=== PATIENT | male | born 1955 | race Caucasian/White ===

== ENCOUNTER 2016-07-29 12:58 | Emergency (ER) | payer OTHER ==
[~2016-07-29] VITALS: Ht 170.2 cm; Wt 72.6 kg
--- NOTE | 2016-07-29 16:47 | ED GENERAL ADULT ---
History of Present Illness General Chief Complaint: Lower Extremity Problems Stated Complaint: LEG PAIN, W/O BP MEDICATION X 1MO Source: patient, family, old records, mixing machine operator Exam Limitations: no limitations Vital Signs & Intake/Output Vital Signs & Intake/Output Vital Signs Date Time Temp Pulse Resp B/P B/P Pulse O2 O2 Flow FiO2 Mean Ox Delivery Rate 07/29 1719 98.2 80 17 144/80 98 Room Air Room Air 07/29 1345 98.7 73 18 148/84 99 Room Air Allergies Coded Allergies: NO KNOWN ALLERGIES (04/19/11) Reconcile Medications Gabapentin (Neurontin) 300 MG CAPSULE 1 CAP PO TID neuropathy Lisinopril 5 MG TABLET 1 TAB PO DAILY htn Triage Note: C/O BILATERAL LOWER LEG PAIN X 2 WEEKS. ALSO STATES HE RAN OUT OF BP MED (LISINOPRIL), STATES DR. CHILDRESS WILL NOT REFILL RX UNTIL HE GETS AN ECHOCARDIOGRAM. 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 Triage Nurses Notes Reviewed? yes Onset: Gradual Duration: week(s): (3), intermittent, waxing and waning Timing: recent history Injury Environment: home Severity: mild Severity Numbers: 4 No Modifying Factors: none Associated Symptoms: DENIES HPI: 61-year-old male with history of hypertension coronary artery disease presents to ER for evaluation complaining of bilateral leg pain for the past 3 weeks intermittent in nature waxing and waning worse at night described as burning. He denies any known injury trauma. No rashes to the skin no swelling to his legs no calf pain no recent travel or immobility. He denies any chest pain shortness of breath abdominal pain. He denies any other extremity injury no back pain neck pain. No recent fall or trauma. Patient is also requesting refill of his lisinopril which he ran out of earlier this month. He is pink but with all his other medications no history of diabetes. No modifying factors or associated symptoms. He denies any numbness or tingling to his leg just burning pain. He denies his burning sensation at this time. (YING GARCIA) Past History Travel History Traveled to [place] past 21 day No Medical History Any Pertinent Medical History? see below for history Cardiovascular: hypertension, CHF,CARDIAC ARREST Pneumonia Vaccine: 04/22/11 Influenza Vaccine: 04/22/11 Surgical History Surgical History: non-contributory Psychosocial History Who do you live with Son What is your primary language Turkmen Tobacco Use: Never used ETOH Use: denies use Family History Hx Contributory? No (YING GARCIA) Review of Systems Review of Systems Constitutional: Reports: see HPI. All Other Systems: Reviewed and Negative Comments Review of systems: See HPI, All other systems negative. Constitutional, no chills no fever, no malaise HEENT: No visual changes no sore throat no congestion Cardiovascular: No chest pain , no palpitation Skin: no rashes, no change in skin Respiratory: No dyspnea no cough no sputum GI: No nausea no vomiting, no diarrhea, : No dysuria Muscle skeletal: No joint pain, no joint swelling, no back pain, no neck pain, Neurologic: No numbness no headache Psych: No stress. Heme/endocrine: No bruising Immunology: No lymphadenopathy (YING GARCIA) Physical Exam Physical Exam General Appearance: well developed/nourished, no apparent distress Comments: Well-developed well-nourished person in no acute distress HEENT: Normal EENT exam; PERRL, EOMI, no nystagmus. HEAD is atraumatic. moist mucous membranes. Neck: Supple, normal range of motion Back: Nontender, no CVA tenderness. Full range of motion Cardiovascular: Regular rate and rhythms no murmurs rubs or gallops Respiratory: Chest nontender.There were no bony deformities, no asymmetry. No respiratory distress. Patient speaking in full complete sentences. Breath sounds clear to auscultation bilaterally: NO W/R/R Upper Extremity: No edema, full range of motion of extremities, normal and equal pulses bilaterally, 5 out of 5 strength noted to bilateral upper and lower extremities Hip/Pelvis: Atraumatic/Stable. FROM. No pain with pelvic compression Knee: Atraumatic/stable. FROM. No joint swelling, no effusion. No laxity. No pain with ROM Leg: Atraumatic. Nontender. No edema, 5 out of 5 strength in the lower extremity, normal dorsiflexion of great toe bilaterally, gross sensation is intact, patellar tendon reflex 2+ bilaterally. Ankle/Foot: Atraumatic/stable. Skin intact. FROM. No swelling, no effusion. No laxity on exam Pulses: Normal/equal DP/PT pulses bilaterally. Brisk cap refill Neuro: Alert oriented x3, motor sensory normal, cranial nerves II through XII grossly intact. There were no obvious focal neurologic abnormalities. Skin: No appreciable rash on exposed skin, skin is warm and dry. Psych: Mood and affect is normal, memory and judgment is normal. Core Measures ACS in differential dx? No CVA/TIA Diagnosis: No Severe Sepsis Present: No Septic Shock Present: No (YING GARCIA) Progress Differential Diagnoses I considered the following diagnoses in my evaluation of the patient: Radiculopathy neuropathy DVT cellulitis arterial insufficiency Plan of Care: Orders Procedure Date/time Status FingerStick- Glucose 07/29 1653 Active Patient denies any symptoms at this time I checked his blood sugar which was 54 denies any dizziness lightheadedness. No history of diabetes. 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 lisinopril as directed, neurontin as directed. these were sent to [facility]. return to the ER with any concerns Departure Forms: Customer Survey General Discharge Information Prescriptions: Current Visit Scripts Lisinopril 1 TAB PO DAILY #30 TAB Gabapentin (Neurontin) 1 CAP PO TID #21 CAP (YING GARCIA) PA/ELECTRONIC INTEGRATED SYSTEMS MECHANIC Co-Sign Statement Statement: ED Attending supervision documentation- x I saw and evaluated the patient. I have also reviewed all the pertinent lab results and diagnostic results. I agree with the findings and the plan of care as documented in the PA's/ELECTRONIC INTEGRATED SYSTEMS MECHANIC's documentation. [] I have reviewed the ED Record and agree with the PA's/ELECTRONIC INTEGRATED SYSTEMS MECHANIC's documentation. [] Additions or exceptions (if any) to the PAs/ELECTRONIC INTEGRATED SYSTEMS MECHANIC's note and plan are summarized below: [] (MARTINA LAYTON,DARLIN) Critical Care Note Critical Care Note Critical Care Time: non-applicable (YING GARCIA)
[2016-07-29] MEDS ORDERED: NEURONTIN300 M1 PO (17:07)
[2016-07-29] MEDS ORDERED: LISINOPRIL5 M1 PO (17:07)
[2016-07-29 17:19] VITALS: BP 144/80
== END 2016-07-29 17:20 ==
LOC: ERH 12:58
DX: M79.604 Pain in right leg (principal); M79.605 Pain in left leg